=== PATIENT | male | born 1940 | race Caucasian/White ===

== ENCOUNTER 2021-05-03 11:33 | Outpatient (CLI) | payer MEDICARE | END 2021-05-03 11:34 | disposition home or self-care (01) | LOC: BICULT 11:33 | PROVIDERS: ATTEND Urology | DX: N43.40 Spermatocele of epididymis, unspecified (principal) | CPT/HCPCS: 76870; 93976 ==

== ENCOUNTER 2021-05-23 09:41 | Outpatient (CLI) | payer MEDICARE ==
[2021-05-23 11:13] LABS: Hemoglobin 12.8 g/dL (13.5-17.5); Mean Corpuscular HGB CONC 32.6 g/dL (32.0-36.0); Mean Corpuscular Hemoglobin 32.8 pg (27.0-33.0); Mean Corpuscular Volume 100.8 fl (81.2-95.1); Mean Platelet Volume 10.4 fl (7.4-10.4); Platelet Count 272 10x3/uL (150-450); RBC Distribution Width 13.7 % (11.5-14.5); White Blood Cell (WBC) Count 8.7 10x3/uL (3.5-10.5)
[2021-05-23 11:26] LABS: INR-International Normal Ratio 1.2; PTT 32.2 sec (22.0-33.0); Prothrombin Time 13.4 sec (9.5-12.1)
[2021-05-23 11:33] LABS: Bilirubin Neg (Negative); Blood, Urine 10 (Negative); Clarity Clear (Clear); Glucose, Urine (Dipstick) Normal (Negative); Ketone, Urine Negative (Negative); Leukocyte Negative (Negative); Nitrite Negative (Negative); Protein, Urine (Dipstick) 100 mg/dl (Neg-Trace)
[2021-05-23 11:33] LABS: Anion Gap 12 mmol/L (10-20); BUN (Urea Nitrogen) 17 mg/dL (8.4-25.7); Calc. Creatinine Clearance 0 mL/min (70-130); Calcium 9.4 mg/dL (7.8-10.44); Carbon Dioxide 30 mmol/L (23-31); Chloride 101 mmol/L (98-107); Glucose 179 mg/dL (83-110); Potassium 4.3 mmol/L (3.5-5.1); Sodium 139 mmol/L (136-145)
[2021-05-23 11:51] LABS: RBC/HPF 0-3 HPF (0-3); WBC/HPF 0-3 HPF (0-3)
[2021-05-23 11:52] LABS: Bacteria/HPF None Seen HPF (None Seen); Squamous Epithelial None Seen HPF (0-3)
[2021-05-23 19:25] LABS: SARS-CoV-2 PCR by NAA Not Detected (NotDetected)
== END 2021-05-23 09:42 | disposition home or self-care (01) ==
LOC: LABBT 09:41
PROVIDERS: ATTEND Urology
DX: Z01.818 Encounter for other preprocedural examination (principal); N43.40 Spermatocele of epididymis, unspecified; Z20.822 Contact with and (suspected) exposure to COVID-19
CPT/HCPCS: 80048; 81001; 85027; 85610; 85730; 87086; 93005; 93010; U0003; U0005

== ENCOUNTER 2024-02-06 18:15 | Emergency (ER) | payer OTHER ==
[2024-02-06 19:10] LABS: #Basophils Less than 0.03 10x3/uL (0.0-0.2); %Basophils 0.2 % (0.0-1.0); %Eosinophils 1.6 % (0.0-10.0); %Lymphocytes 14.6 % (21.0-51.0); %Monocytes 13.7 % (0.0-10.0); %Neutrophils 69.4 % (42.0-75.0); Hematocrit 22.8 % (42.0-52.0); Hemoglobin 6.9 g/dL (14.0-18.0); Mean Corpuscular HGB CONC 30.3 g/dL (32.0-36.0); Mean Corpuscular Hemoglobin 24.1 pg (27.0-31.0); Mean Corpuscular Volume 79.7 fL (78.0-98.0); Mean Platelet Volume 9.5 fL (7.4-10.4); Platelet Count 406 10x3/uL (130-400); RBC Distribution Width 19.9 % (11.5-14.5); Red Blood Cell (RBC) Count 2.86 mill/uL (4.70-6.10)
[2024-02-06 19:27] LABS: ALT (SGPT) 10 U/L (8-55); AST (SGOT) 20 U/L (5-34); Albumin 3.9 g/dL (3.4-4.8); Alkaline Phosphatase 65 U/L (40-110); Anion Gap 14 mmol/L (10-20); BUN (Urea Nitrogen) 68 mg/dL (8.4-25.7); Bilirubin, Total 0.6 mg/dL (0.2-1.2); Calc. Creatinine Clearance 0 mL/min (70-130); Calcium 9.7 mg/dL (7.8-10.44); Carbon Dioxide 27 mmol/L (23-31); Chloride 97 mmol/L (98-107); Estimated GFR 32; Globulin 3.2 g/dL (2.4-3.5); Glucose 122 mg/dL (83-110); Potassium 3.4 mmol/L (3.5-5.1); Protein, Total 7.1 g/dL (5.8-8.1); Sodium 135 mmol/L (136-145)
[2024-02-06 19:28] LABS: INR-International Normal Ratio 1.5; Prothrombin Time 18.2 sec (12.0-14.7)
[2024-02-06 19:29] LABS: PTT 40.9 sec (22.9-36.1)
[2024-02-06 19:33] LABS: Troponin I 0.045 ng/mL (< 0.028)
[2024-02-06 20:35] LABS: Bacteria/HPF None Seen HPF (None Seen); Bilirubin Negative (Negative); Blood, Urine Negative (Negative); CAUTI Indications for Culture Pelvic or flank pain; Clarity Clear (Clear); Glucose, Urine (Dipstick) Normal (Negative); Ketone, Urine Negative (Negative); Leukocyte Negative Leu/uL (Negative); Nitrite Negative (Negative); Protein, Urine (Dipstick) Negative (Neg-Trace); RBC/HPF 0-3 HPF (0-3); Specific Gravity, Urine 1.006 (1.002-1.036); Squamous Epithelial None Seen HPF (0-3); Urobilinogen Normal mg/dL (Less than 2); WBC/HPF 0-3 HPF (0-3)
[2024-02-06 20:47] LABS: Urine Culture Reflex No No
[2024-02-06 21:30] LABS: Troponin I 0.042 ng/mL (< 0.028)
== END 2024-02-06 23:06 | disposition home or self-care (01) ==
LOC: ERS 18:15
DX: D64.9 Anemia, unspecified (principal); I10 Essential (primary) hypertension; E11.9 Type 2 diabetes mellitus without complications; Z79.01 Long term (current) use of anticoagulants; Z87.891 Personal history of nicotine dependence; Z55.6 Problems related to health literacy; Z75.3 Unavailability and inaccessibility of health-care facilities
CPT/HCPCS: 36430; 80053; 81001; 84484 ×2; 85025; 85610; 85730; 86850; 86900; 86901; 86920; 93005; 99284; P9016; 36415; 82274

== ENCOUNTER 2024-02-22 12:14 | Inpatient (IN) | payer OTHER ==
[2024-02-22 13:17] LABS: #Basophils Less than 0.03 10x3/uL (0.0-0.2); %Basophils 0.2 % (0.0-1.0); %Eosinophils 0.6 % (0.0-10.0); %Monocytes 11.1 % (0.0-10.0); %Neutrophils 79.7 % (42.0-75.0); Hematocrit 21.2 % (42.0-52.0); Hemoglobin 6.5 g/dL (14.0-18.0); Mean Corpuscular HGB CONC 30.7 g/dL (32.0-36.0); Mean Corpuscular Volume 78.2 fL (78.0-98.0); Mean Platelet Volume 9.6 fL (7.4-10.4); Platelet Count 497 10x3/uL (130-400); RBC Distribution Width 19.9 % (11.5-14.5); Red Blood Cell (RBC) Count 2.71 mill/uL (4.70-6.10)
[2024-02-22 13:38] LABS: ALT (SGPT) 8 U/L (8-55); AST (SGOT) 14 U/L (5-34); Albumin 3.5 g/dL (3.4-4.8); Alkaline Phosphatase 62 U/L (40-110); Anion Gap 20 mmol/L (10-20); BUN (Urea Nitrogen) 84 mg/dL (8.4-25.7); Bilirubin, Total 0.7 mg/dL (0.2-1.2); Calc. Creatinine Clearance 0 mL/min (70-130); Calcium 9.1 mg/dL (7.8-10.44); Carbon Dioxide 22 mmol/L (23-31); Chloride 93 mmol/L (98-107); Estimated GFR 24; Globulin 3.3 g/dL (2.4-3.5); Glucose 142 mg/dL (83-110); Potassium 3.9 mmol/L (3.5-5.1); Protein, Total 6.8 g/dL (5.8-8.1); Sodium 131 mmol/L (136-145)
[2024-02-22] MEDS ORDERED: Sodium Chloride 0.9% 100 ML ONE (14:51)
[2024-02-22] MEDS ORDERED: cefTRIAXone (ROCEPHIN) 1 GM VIAL ONE (14:51)
[2024-02-22] MEDS ORDERED: Pantoprazole 40 MG VIAL ONE (14:51)
[2024-02-22] MEDS ORDERED: Furosemide 40 MG (4 mL) VIAL ONE (14:51)
[2024-02-22] MEDS ORDERED: Octreotide Acetate 1,250 MCG in Sodium Chloride 0.9% 250 ML 250 ML IVPB SCH (15:00)
[2024-02-22 15:14] LABS: INR-International Normal Ratio 1.6; Prothrombin Time 18.9 sec (12.0-14.7)
[2024-02-22] MEDS ORDERED: Glucagon 1 MG/ML KIT IM PRN (19:58)
[2024-02-22] MEDS ORDERED: Dextrose 50% Abboject 50 ML SYRINGE SLOW IVP PRN (19:58)
[2024-02-22] MEDS ORDERED: Dextrose 5% in Water 1,000 ML IV PRN (19:58)
[2024-02-22] MEDS ORDERED: Ondansetron PF 4 MG/2 ML Vial IVP PRN (19:59)
[2024-02-22] MEDS ORDERED: Ondansetron ODT 4 MG TAB PO PRN (19:59)
[2024-02-22 20:05] LABS: Iron 15 ug/dL (65-175); Iron Binding Capacity, Total 446 mcg/dL (261-462)
[2024-02-22 21:20] VITALS: BMI 24.9
[2024-02-22] MEDS: Furosemide 40 MG (4 mL) VIAL SLOW IVP SCH (21:41)
[2024-02-23 00:36] LABS: Hematocrit 24.7 % (42.0-52.0); Hemoglobin 7.7 g/dL (14.0-18.0)
[2024-02-23] MEDS: Acetaminophen 325 MG TAB PO PRN (04:17)
[2024-02-23 05:16] LABS: Hemoglobin A1c 5.9 % (4.0-6.0)
[2024-02-23 05:17] LABS: Anion Gap 19 mmol/L (10-20); BUN (Urea Nitrogen) 77 mg/dL (8.4-25.7); Calc. Creatinine Clearance 31 mL/min (70-130); Carbon Dioxide 23 mmol/L (23-31); Chloride 94 mmol/L (98-107); Estimated GFR 26; Glucose 164 mg/dL (83-110); Potassium 3.7 mmol/L (3.5-5.1); Sodium 132 mmol/L (136-145)
[2024-02-23] MEDS: Furosemide 100 MG (10 mL) VIAL SLOW IVP SCH (06:22)
[2024-02-23] MEDS: Pantoprazole 40 MG VIAL IVP SCH (08:04)
[2024-02-23 11:17] LABS: Hematocrit 24.4 % (42.0-52.0); Hemoglobin 7.4 g/dL (14.0-18.0)
[2024-02-23] MEDS ORDERED: PROPOFOL 20 ML ONE (13:19)
[2024-02-23] MEDS ORDERED: Lidocaine 2% PF 5 ML VIAL ONE (13:19)
[2024-02-23] MEDS ORDERED: Promethazine HCl 25 MG/ML VIAL IM PRN (13:52)
[2024-02-23] MEDS ORDERED: Ondansetron HCl/PF 4 MG/2 ML Vial IVP PRN (13:52)
[2024-02-23 15:04] VITALS: BMI 24.9
[2024-02-23] MEDS: Ferrous Sulfate 325 MG TAB PO SCH (17:55)
[2024-02-23 18:55] LABS: Hemoglobin 8.8 g/dL (14.0-18.0)
[2024-02-23] MEDS: Atorvastatin Calcium 40 MG TAB PO SCH (20:32)
[2024-02-23] MEDS: Insulin Lispro 100 UNIT/ML 10 ML VIAL SC PRN (20:44)
[2024-02-24 04:32] LABS: #Basophils Less than 0.03 10x3/uL (0.0-0.2); %Basophils 0.1 % (0.0-1.0); %Eosinophils 0.9 % (0.0-10.0); %Monocytes 11.8 % (0.0-10.0); %Neutrophils 79.5 % (42.0-75.0); Mean Corpuscular HGB CONC 30.8 g/dL (32.0-36.0); Mean Corpuscular Hemoglobin 25.2 pg (27.0-31.0); Mean Platelet Volume 9.5 fL (7.4-10.4); Platelet Count 368 10x3/uL (130-400); RBC Distribution Width 18.4 % (11.5-14.5); Red Blood Cell (RBC) Count 3.17 mill/uL (4.70-6.10)
[2024-02-24 05:02] LABS: Anion Gap 13 mmol/L (10-20); BUN (Urea Nitrogen) 58 mg/dL (8.4-25.7); Calc. Creatinine Clearance 0 mL/min (70-130); Calcium 8.7 mg/dL (7.8-10.44); Carbon Dioxide 28 mmol/L (23-31); Chloride 96 mmol/L (98-107); Estimated GFR 33; Glucose 171 mg/dL (83-110); Sodium 134 mmol/L (136-145)
[2024-02-24] MEDS: Potassium Chloride 20 MEQ TAB PO SCH ×2 (06:12→15:55)
[2024-02-24] MEDS ORDERED: Electrolyte Replacement Protocol FS PRN (08:15)
[2024-02-24 12:28] LABS: Potassium 3.3 mmol/L (3.5-5.1)
[2024-02-24] MEDS: Sodium Ferric Gluconate 250 MG in Sodium Chloride 0.9% 250 ML 250 ML IVPB SCH (15:54)
[2024-02-24] MEDS: Electrolyte Replacement Protocol 1 EACH FS ONE (15:55)
[2024-02-24] MEDS: Insulin Lispro 100 UNIT/ML 10 ML VIAL SC PRN (17:43)
[2024-02-25 05:42] LABS: #Basophils Less than 0.03 10x3/uL (0.0-0.2); %Eosinophils 1.7 % (0.0-10.0); %Lymphocytes 5.9 % (21.0-51.0); %Monocytes 12.3 % (0.0-10.0); %Neutrophils 79.5 % (42.0-75.0); Hematocrit 25.6 % (42.0-52.0); Hemoglobin 7.9 g/dL (14.0-18.0); Mean Corpuscular HGB CONC 30.9 g/dL (32.0-36.0); Mean Corpuscular Hemoglobin 25.2 pg (27.0-31.0); Mean Corpuscular Volume 81.8 fL (78.0-98.0); Mean Platelet Volume 9.3 fL (7.4-10.4); Platelet Count 353 10x3/uL (130-400); RBC Distribution Width 18.8 % (11.5-14.5); Red Blood Cell (RBC) Count 3.13 mill/uL (4.70-6.10)
[2024-02-25 06:04] LABS: Anion Gap 14 mmol/L (10-20); BUN (Urea Nitrogen) 44 mg/dL (8.4-25.7); Calc. Creatinine Clearance 43 mL/min (70-130); Calcium 8.6 mg/dL (7.8-10.44); Carbon Dioxide 26 mmol/L (23-31); Chloride 100 mmol/L (98-107); Estimated GFR 42; Glucose 179 mg/dL (83-110); Magnesium 2.1 mg/dL (1.6-2.6); Potassium 3.4 mmol/L (3.5-5.1); Sodium 137 mmol/L (136-145)
[2024-02-25] MEDS: Potassium Chloride 20 MEQ TAB PO SCH (10:16)
[2024-02-25] MEDS: Pantoprazole DR 40 MG TAB PO SCH (10:17)
[2024-02-25] MEDS: Furosemide 40 MG TAB PO SCH (10:17)
[2024-02-26 05:35] LABS: #Basophils Less than 0.03 10x3/uL (0.0-0.2); %Basophils 0.1 % (0.0-1.0); %Eosinophils 3.2 % (0.0-10.0); %Lymphocytes 9.1 % (21.0-51.0); %Monocytes 12.5 % (0.0-10.0); %Neutrophils 74.5 % (42.0-75.0); Hematocrit 25.5 % (42.0-52.0); Hemoglobin 7.8 g/dL (14.0-18.0); Mean Corpuscular HGB CONC 30.6 g/dL (32.0-36.0); Mean Corpuscular Hemoglobin 25.3 pg (27.0-31.0); Mean Corpuscular Volume 82.8 fL (78.0-98.0); Mean Platelet Volume 9.5 fL (7.4-10.4); Platelet Count 341 10x3/uL (130-400); RBC Distribution Width 19.6 % (11.5-14.5); Red Blood Cell (RBC) Count 3.08 mill/uL (4.70-6.10)
[2024-02-26 06:04] LABS: Anion Gap 12 mmol/L (10-20); BUN (Urea Nitrogen) 33 mg/dL (8.4-25.7); Calc. Creatinine Clearance 47 mL/min (70-130); Calcium 8.6 mg/dL (7.8-10.44); Carbon Dioxide 27 mmol/L (23-31); Chloride 101 mmol/L (98-107); Estimated GFR 46; Glucose 179 mg/dL (83-110); Potassium 3.8 mmol/L (3.5-5.1); Sodium 136 mmol/L (136-145)
[2024-02-26] MEDS: Polyethylene Glycol 3350 17 GM Packet PO PRN (16:50)
[2024-02-27 05:26] LABS: #Basophils Less than 0.03 10x3/uL (0.0-0.2); %Basophils 0.2 % (0.0-1.0); %Eosinophils 3.5 % (0.0-10.0); %Neutrophils 74.6 % (42.0-75.0); Hematocrit 26.1 % (42.0-52.0); Mean Corpuscular HGB CONC 30.7 g/dL (32.0-36.0); Mean Corpuscular Hemoglobin 25.6 pg (27.0-31.0); Mean Corpuscular Volume 83.4 fL (78.0-98.0); Mean Platelet Volume 9.4 fL (7.4-10.4); Platelet Count 350 10x3/uL (130-400); RBC Distribution Width 20.6 % (11.5-14.5); Red Blood Cell (RBC) Count 3.13 mill/uL (4.70-6.10)
[2024-02-27 05:27] LABS: Anion Gap 14 mmol/L (10-20); BUN (Urea Nitrogen) 29 mg/dL (8.4-25.7); Calc. Creatinine Clearance 59 mL/min (70-130); Calcium 8.8 mg/dL (7.8-10.44); Carbon Dioxide 24 mmol/L (23-31); Chloride 102 mmol/L (98-107); Estimated GFR 59; Glucose 176 mg/dL (83-110); Potassium 3.9 mmol/L (3.5-5.1); Sodium 136 mmol/L (136-145)
[2024-02-27] MEDS: Bisacodyl 5 MG TAB PO SCH (11:17)
[2024-02-27] MEDS: Lidocaine 4% Patch TD SCH (11:17)
[2024-02-27] MEDS: Senokot S 8.6-50 MG TAB PO SCH (21:27)
[2024-02-27] MEDS: Diclofenac 1% 50 GM TOPICAL GEL TP SCH (21:27)
[2024-02-27] MEDS: Transdermal Patch Removal TOP SCH (21:29)
[2024-02-27] MEDS ORDERED: Loratadine 10 MG TAB PO PRN (22:07)
[2024-02-28] MEDS: GUAIFENESIN SF SOLN 200 MG/10 ML UDCUP PO PRN (05:27)
[2024-02-29 20:02] VITALS: BP 108/59; TEMP 98.6
== END 2024-02-29 21:45 | disposition short-term general hospital (02) | DRG 377 ==
LOC: ERS 12:14 → OBS 19:21
PROVIDERS: ADMIT Hospitalist; ATTEND Internal Medicine
PROC: 30233N1 Transfusion of Nonautologous Red Blood Cells into Peripheral Vein, Percutaneous Approach (ICD-10-PCS; 2024-02-22)
PROC: 0DB38ZX Excision of Lower Esophagus, Via Natural or Artificial Opening Endoscopic, Diagnostic (ICD-10-PCS; principal; 2024-02-23)
DX: K92.1 Melena (principal); I50.23 Acute on chronic systolic (congestive) heart failure; N17.9 Acute kidney failure, unspecified; I13.0 Hypertensive heart and chronic kidney disease with heart failure and stage 1 through stage 4 chronic kidney disease, or unspecified chronic kidney disease; N18.4 Chronic kidney disease, stage 4 (severe); I42.9 Cardiomyopathy, unspecified; I48.19 Other persistent atrial fibrillation; G47.33 Obstructive sleep apnea (adult) (pediatric); I25.10 Atherosclerotic heart disease of native coronary artery without angina pectoris; D50.9 Iron deficiency anemia, unspecified; I35.0 Nonrheumatic aortic (valve) stenosis; I34.0 Nonrheumatic mitral (valve) insufficiency; E11.22 Type 2 diabetes mellitus with diabetic chronic kidney disease; K59.00 Constipation, unspecified; E11.51 Type 2 diabetes mellitus with diabetic peripheral angiopathy without gangrene; K44.9 Diaphragmatic hernia without obstruction or gangrene; Z87.891 Personal history of nicotine dependence; Z79.899 Other long term (current) drug therapy; Z79.84 Long term (current) use of oral hypoglycemic drugs; Z79.01 Long term (current) use of anticoagulants; Z95.5 Presence of coronary angioplasty implant and graft
CPT/HCPCS: 36415; 36416; 36430; 71045; 80048; 80053; 82728; 83036; 83540; 83550; 83735; 83880; 84484; 85014; 85018; 85025; 85610; 86850; 86900; 86901; 88305; 93005; 93306; 96374; 96375; 97139; J0696; J1815; J1940; J2354; J2470; J2704; J2916; J7050; P9016